=== PATIENT | male | born 1955 | race African-American/Black ===

== ENCOUNTER 2018-03-07 13:45 | Inpatient (IN) | payer OTHER ==
[2018-03-07 14:10] VITALS: BMI 31.8
--- NOTE | 2018-03-07 14:53 | HP ---
CIWA Score Nausea/Vomitin Muscle Tremors: 4-Moderate,w/Arms Extend Anxiety: 4-Mod. Anxious/Guarded Agitation: 0-Normal Activity Paroxysmal Sweats: 1-Minimal Palms Moist Orientation: 0-Oriented Tacttile Disturbances: 0-None Auditory Disturbances: 1-Very Mild Visual Disturbances: 0-None Headache: 2-Mild CIWA-Ar Total Score: 14 - Admission Criteria [facility] Guidelines: Admission for Medically Managed Detox: Requires at least one of the followin. CIWA greater than 12 2. Seizures within the past 24 hours 3. Delirium tremens within the past 24 hours 4. Hallucinations within the past 24 hours 5. Acute intervention needed for co occurring medical disorder 6. Acute intervention needed for co occurring psychiatric disorder 7. Severe withdrawal that cannot be handled at a lower level of care (continued vomiting, continued diarrhea, abnormal vital signs) requiring intravenous medication and/or fluids 8. Patient presents the following: CIWA greater than 12 Admission Criteria Met: Admission criteria met Admission ROS S - HPI Chief Complaint: Things are out of control. I need help. Allergies/Adverse Reactions: Allergies Allergy/AdvReac Type Severity Reaction Status Date / Time No Known Allergies Allergy Verified 03/07/18 14:35 History of Present Illness: 62 yo gentleman here for detox from alcohol. First time here for detox but was in detox elsewhere - states last time in detox five years ago and relapsed about two years ago. Denies seizures but has black outs and gets very shaky if he doesn't drink alcohol. Exam Limitations: Clinical Condition - Ebola screening Have you traveled outside of the country in the last 21 days: No (N) Have you had contact with anyone from an Ebola affected area: No Have you been sick,other than usual withdrawal symptoms: No Do you have a fever: No - Review of Systems Constitutional: Loss of Appetite, Night Sweats, Changes in sleep, Weakness EENT: reports: Blurred Vision, Hearing Loss Respiratory: reports: No Symptoms reported Cardiac: reports: No Symptoms Reported GI: reports: Nausea, Poor Appetite, Abdominal cramping : reports: Frequency Musculoskeletal: reports: Joint Pain (knee arthritis), Joint Stiffness Integumentary: reports: Dryness Neuro: reports: Headache, Tremors Endocrine: reports: No Symptoms Reported Hematology: reports: No Symptoms Reported Psychiatric: reports: Judgement Intact, Mood/Affect Appropiate, Orientated x3, Anxious Other Systems: Reviewed and Negative Patient History - Patient Medical History Hx Anemia: No Hx Asthma: No Hx Chronic Obstructive Pulmonary Disease (COPD): No Hx Cancer: No Hx Cardiac Disorders: No Hx Congestive Heart Failure: No Hx Hypertension: Yes (on meds) Hx Hypercholesterolemia: No Hx Pacemaker: No HX Cerebrovascular Accident: No Hx Seizures: No Hx Diabetes: No Hx Gastrointestinal Disorders: No Hx Liver Disease: No Hx Genitourinary Disorders: No Hx Sexually Transmitted Disorders: No Hx Renal Disease (ESRD): No Hx Thyroid Disease: No Hx Human Immunodeficiency Virus (HIV): No Hx Hepatitis C: No Hx Depression: No Hx Suicide Attempt: No Hx Bipolar Disorder: No Hx Schizophrenia: No Other Medical History: knee arthritis - Patient Surgical History Past Surgical History: No - PPD History Previous Implant?: Yes Documented Results: Negative w/o proof Implanted On Prior [facility] Admission?: No PPD to be Administered?: Yes - Reproductive History Patient is a Female of Child Bearing Age (11 -55 yrs old): No (male) - Smoking Cessation Smoking history: Current every day smoker Have you smoked in the past 12 months: Yes Aproximately how many cigarettes per day: 20 Initiated information on smoking cessation: Yes 'Breaking Loose' booklet given: 03/07/18 (give on floor) - Substance & Tx. History Hx Alcohol Use: Yes Hx Substance Use: Yes Substance Use Type: Alcohol, Cocaine Hx Substance Use Treatment: Yes (detox, rehab) - Substances Abused Alcohol Route: Oral Frequency: Daily Amount used: 1 [place] Age of first use: 26 Date of Last Use: 03/06/18 Crack Route: Smoking Frequency: Daily Amount used: $30 Age of first use: 27 Date of Last Use: 03/07/18 Family Disease History - Family Disease History Family Disease History: [place]: Father (, etoh), Other: Father, Mother ( , asthma) Admission Physical Exam [facility] - Vital Signs Vital Signs: Vital Signs - 24 hr 03/07/18 14:05 Temperature 98.1 F Pulse Rate 72 Respiratory 20 Rate Blood Pressure 129/79 - Physical General Appearance: Yes: Nourished, Appropriately Dressed, Moderate Distress, Obese, Tremorous, Anxious HEENTM: Yes: EOMI, Normocephalic, Normal Voice, Pharynx Normal, Other (hearing is decreased) Respiratory: Yes: Normal Breath Sounds, No Respiratory Distress Neck: Yes: No masses,lesions,Nodules, Supple Breast: Yes: Breast Exam Deferred Cardiology: Yes: Regular Rhythm, Regular Rate Abdominal: Yes: Soft, Protuberent Genitourinary: Yes: Frequency Back: Yes: Normal Inspection Musculoskeletal: Yes: full range of Motion, Gait Steady, Joint Stiffness Extremities: Yes: Normal Inspection Neurological: Yes: Fully Oriented, Alert, Motor Strength 5/5, Normal Mood/Affect , Normal Response Integumentary: Yes: Normal Color, Dry, Warm Lymphatic: Yes: Within Normal Limits - Diagnostic (1) Alcohol dependence with uncomplicated withdrawal Current Visit: Yes Status: Chronic (2) Cocaine dependence Current Visit: Yes Status: Acute Qualifiers: Substance use status: uncomplicated Qualified Code(s): F14.20 - Cocaine dependence, uncomplicated (3) HTN (hypertension) Current Visit: Yes Status: Acute Qualifiers: Hypertension type: essential hypertension Qualified Code(s): I10 - Essential (primary) hypertension (4) Nicotine dependence Current Visit: Yes Status: Chronic Qualifiers: Nicotine product type: cigarettes Substance use status: uncomplicated Qualified Code(s): F17.210 - Nicotine dependence, cigarettes, uncomplicated (5) Obesity (BMI 30.0-34.9) Current Visit: Yes Status: Chronic (6) Osteoarthritis of knee Current Visit: Yes Status: Chronic Qualifiers: Osteoarthritis type: primary Laterality: bilateral Qualified Code(s): M17.0 - Bilateral primary osteoarthritis of knee Cleared for Admission [facility] - Detox or Rehab [facility] Level of Care: Medically Managed Detox Regimen/Protocol: Librium [facility] Breath Alcohol Content Breath Alcohol Content: 0 Urine Drug Screen - Results Drug Screen Negative: No Urine Drug Screen Results: KIKE-Cocaine
[2018-03-07] MEDS ORDERED: MAGNESIUM CITRATE 300 ML BOTTLE PO PRN (14:55)
[2018-03-07] MEDS ORDERED: MENTHOL/PHENOL 1 EACH UD MM PRN (14:55)
[2018-03-07] MEDS ORDERED: MAGNESIUM HYDROX 2400MG/30ML ORAL SUSPENSION 30 ML CUP PO PRN (14:55)
[2018-03-07] MEDS ORDERED: chlordiazePOXIDE HCL 25 MG CAPSULE PO PRN (14:55)
[2018-03-07] MEDS ORDERED: guaiFENesin/D-METHORPHAN HB 10 ML UNIT-DOSE CUPS PO PRN (14:55)
[2018-03-07] MEDS ORDERED: MAG HYDROX/AL HYDROX/SIMETH 30 ML UNIT-DOSE CUP PO PRN (14:55)
[2018-03-07] MEDS ORDERED: IBUPROFEN 400 MG TABLET (FP) PO PRN (14:55)
[2018-03-07] MEDS ORDERED: LOPERAMIDE HCL 2 MG CAPSULE PO PRN (14:55)
[2018-03-07] MEDS ORDERED: ACETAMINOPHEN 325 MG TABLET (FP) PO PRN (14:55)
[2018-03-07] MEDS ORDERED: P-EPHED 60MG/TRIPROLIDI 2.5MG TABLET PO PRN (14:55)
[2018-03-07] MEDS: chlordiazePOXIDE HCL 25 MG CAPSULE PO SCH ×2 (17:40→22:15)
[2018-03-07] MEDS ORDERED: MELATONIN 5 MG TABLETS PO PRN (22:00)
[2018-03-07] MEDS: THIAMINE HCL 100 MG TABLET (FP) PO SCH (22:15)
[2018-03-07] MEDS: METHYL SALICYLATE/MENTHOL OINT 30 GM TUBE TP SCH (22:16)
[2018-03-08] MEDS: chlordiazePOXIDE HCL 25 MG CAPSULE PO SCH ×3 (05:17→17:22)
[2018-03-08] MEDS: METHYL SALICYLATE/MENTHOL OINT 30 GM TUBE TP SCH ×2 (10:17→23:19)
[2018-03-08] MEDS: PRENATAL VITAMINS W/ FOLIC ACID TABLET (FP) PO SCH (10:18)
[2018-03-08] MEDS: HYDROCHLOROTHIAZIDE 25 MG TABLET (FP) PO SCH (10:19)
[2018-03-08] MEDS: amLODIPine BESYLATE 10 MG TABLET (FP) PO SCH (10:19)
--- NOTE | 2018-03-08 11:00 | EKG ---
Test Reason : Blood Pressure : / mmHG Vent. Rate : 079 BPM Atrial Rate : 079 BPM P-R Int : 172 ms QRS Dur : 088 ms QT Int : 386 ms P-R-T Axes : 072 013 054 degrees QTc Int : 442 ms NORMAL SINUS RHYTHM POSSIBLE LEFT ATRIAL ENLARGEMENT NONSPECIFIC T WAVE ABNORMALITY ABNORMAL ECG NO PREVIOUS ECGS AVAILABLE Confirmed by RADHA ARDON MD ([id number]) on 03/08/2018 11:00:01 AM Referred By: Confirmed By:RADHA ARDON MD
[2018-03-08 11:15] LABS: ALBUMIN 3.3 g/dl (3.4-5.0); ALK PHOS 67 U/L (45-117); ANION GAP 9 MMOL/L (8-16); BILIRUBIN,TOTAL 0.4 mg/dL (0.2-1); BLOOD UREA NITROGEN 16 mg/dL (7-18); CALCIUM 8.6 mg/dL (8.5-10.1); CHLORIDE 110 mmol/L (98-107); CO2 24 mmol/L (21-32); CREATININE 0.9 mg/dL (0.55-1.3); GLUCOSE,RANDOM 108 mg/dL (74-106); POTASSIUM 3.5 mmol/L (3.5-5.1); SGOT/AST 9 U/L (15-37); SGPT/ALT 21 U/L (13-61); SODIUM 143 mmol/L (136-145); TOT PROT 6.5 g/dl (6.4-8.2)
[2018-03-08 11:19] LABS: HEMATOCRIT 38.3 % (35.4-49); HEMOGLOBIN 12.8 GM/dL (11.7-16.9); MCH 33.1 pg (25.7-33.7); MCHC 33.4 g/dl (32.0-35.9); MEAN PLT VOLUME 8.7 fl (7.5-11.1); PLATELET COUNT 187 K/MM3 (134-434); RBC 3.87 M/mm3 (4.00-5.60); RDW 13.2 % (11.9-15.9); WHITE BLOOD COUNT 6.2 K/mm3 (4.0-10.0)
[2018-03-08 11:28] LABS: URINE APPEARANCE TURBID; URINE BILIRUBIN NEGATIVE (<2.0 mg/dL); URINE COLOR AMBER; URINE GLUCOSE (UA) NEGATIVE (NEGATIVE); URINE KETONE NEGATIVE (NEGATIVE); URINE LEUK ESTERASE NEGATIVE (NEGATIVE); URINE NITRITE NEGATIVE (NEGATIVE); URINE PROTEIN NEGATIVE (NEGATIVE); URINE UROBILINOGEN NEGATIVE mg/dL (0.2-1.0)
[2018-03-08 11:33] LABS: EPI CELLS RARE /HPF (FEW); URINE MUCUS RARE
[2018-03-08 11:46] LABS: SICKLE CELL SCREEN NEGATIVE (NEGATIVE)
--- NOTE | 2018-03-08 14:09 | PN ---
S CIWA - CIWA Score Nausea/Vomitin-Mild Nausea/No Vomiting Muscle Tremors: 3 Anxiety: 2 Agitation: 3 Paroxysmal Sweats: 1-Minimal Palms Moist Orientation: 0-Oriented Tacttile Disturbances: 0-None Auditory Disturbances: 0-None Visual Disturbances: 0-None Headache: 2-Mild CIWA-Ar Total Score: 12 BHS Progress Note (SOAP) Subjective: tremor sweating limited food and fluid toleration Objective: 03/08/18 14:11 Vital Signs Temperature 95.5 F L 03/08/18 13:20 Pulse Rate 68 03/08/18 13:20 Respiratory Rate 18 03/08/18 13:20 Blood Pressure 138/79 03/08/18 13:20 O2 Sat by Pulse Oximetry (%) Laboratory Last Values WBC 6.2 K/mm3 (4.0-10.0) 03/08/18 07:20 RBC 3.87 M/mm3 (4.00-5.60) L 03/08/18 07:20 Hgb 12.8 GM/dL (11.7-16.9) 03/08/18 07:20 Hct 38.3 % (35.4-49) 03/08/18 07:20 MCV 99.0 fl (80-96) H 03/08/18 07:20 MCH 33.1 pg (25.7-33.7) 03/08/18 07:20 MCHC 33.4 g/dl (32.0-35.9) 03/08/18 07:20 RDW 13.2 % (11.9-15.9) 03/08/18 07:20 Plt Count 187 K/MM3 (134-434) 03/08/18 07:20 MPV 8.7 fl (7.5-11.1) 03/08/18 07:20 Sickle Cell Screen Negative (NEGATIVE) 03/08/18 07:20 Sodium 143 mmol/L (136-145) 03/08/18 07:20 Potassium 3.5 mmol/L (3.5-5.1) 03/08/18 07:20 Chloride 110 mmol/L (98-107) H 03/08/18 07:20 Carbon Dioxide 24 mmol/L (21-32) 03/08/18 07:20 Anion Gap 9 MMOL/L (8-16) 03/08/18 07:20 BUN 16 mg/dL (7-18) 03/08/18 07:20 Creatinine 0.9 mg/dL (0.55-1.3) 03/08/18 07:20 Creat Clearance w eGFR > 60 (>60) 03/08/18 07:20 Random Glucose 108 mg/dL (74-106) H 03/08/18 07:20 Calcium 8.6 mg/dL (8.5-10.1) 03/08/18 07:20 Total Bilirubin 0.4 mg/dL (0.2-1) 03/08/18 07:20 AST 9 U/L (15-37) L 03/08/18 07:20 ALT 21 U/L (13-61) 03/08/18 07:20 Alkaline Phosphatase 67 U/L (45-117) 03/08/18 07:20 Total Protein 6.5 g/dl (6.4-8.2) 03/08/18 07:20 Albumin 3.3 g/dl (3.4-5.0) L 03/08/18 07:20 Urine Color Danya 03/08/18 08:20 Urine Appearance Turbid 03/08/18 08:20 Urine pH 5.0 (5.0-8.0) 03/08/18 08:20 Ur Specific [place] 1.018 (1.010-1.035) 03/08/18 08:20 Urine Protein Negative (NEGATIVE) 03/08/18 08:20 Urine Glucose (UA) Negative (NEGATIVE) 03/08/18 08:20 Urine Ketones Negative (NEGATIVE) 03/08/18 08:20 Urine Blood 1+ (NEGATIVE) H 03/08/18 08:20 Urine Nitrite Negative (NEGATIVE) 03/08/18 08:20 Urine Bilirubin Negative (<2.0 mg/dL) 03/08/18 08:20 Urine Urobilinogen Negative mg/dL (0.2-1.0) 03/08/18 08:20 Ur Leukocyte Esterase Negative (NEGATIVE) 03/08/18 08:20 Urine WBC (Auto) <1 /hpf (3-5) 03/08/18 08:20 Urine RBC (Auto) 2 /hpf (0-3) 03/08/18 08:20 Ur Epithelial Cells Rare /HPF (FEW) 03/08/18 08:20 Urine Mucus Rare 03/08/18 08:20 RPR Titer Nonreactive (NONREACTIVE) 03/08/18 07:20 lab noted Assessment: 03/08/18 14:11 withdrawal sx Plan: continue detox
[2018-03-08] MEDS: THIAMINE HCL 100 MG TABLET (FP) PO SCH (23:19)
[2018-03-09] MEDS: chlordiazePOXIDE HCL 25 MG CAPSULE PO SCH ×3 (00:25→10:28)
[2018-03-09] MEDS: PRENATAL VITAMINS W/ FOLIC ACID TABLET (FP) PO SCH (10:28)
[2018-03-09] MEDS: amLODIPine BESYLATE 10 MG TABLET (FP) PO SCH (10:28)
[2018-03-09] MEDS: HYDROCHLOROTHIAZIDE 25 MG TABLET (FP) PO SCH (10:30)
[2018-03-09] MEDS: METHYL SALICYLATE/MENTHOL OINT 30 GM TUBE TP SCH ×2 (10:31→22:20)
--- NOTE | 2018-03-09 11:29 | PN ---
S CIWA - CIWA Score Nausea/Vomitin-No Nausea/No Vomiting Muscle Tremors: 2 Anxiety: 2 Agitation: 2 Paroxysmal Sweats: 1-Minimal Palms Moist Orientation: 0-Oriented Tacttile Disturbances: 0-None Auditory Disturbances: 0-None Visual Disturbances: 0-None Headache: 2-Mild CIWA-Ar Total Score: 9 BHS Progress Note (SOAP) Subjective: tremor sweating otherwise doing ok social with peers in day room Objective: 03/09/18 11:30 Vital Signs Temperature 98.4 F 03/09/18 09:14 Pulse Rate 61 03/09/18 09:14 Respiratory Rate 18 03/09/18 09:14 Blood Pressure 121/74 03/09/18 09:14 O2 Sat by Pulse Oximetry (%) Laboratory Last Values WBC 6.2 K/mm3 (4.0-10.0) 03/08/18 07:20 RBC 3.87 M/mm3 (4.00-5.60) L 03/08/18 07:20 Hgb 12.8 GM/dL (11.7-16.9) 03/08/18 07:20 Hct 38.3 % (35.4-49) 03/08/18 07:20 MCV 99.0 fl (80-96) H 03/08/18 07:20 MCH 33.1 pg (25.7-33.7) 03/08/18 07:20 MCHC 33.4 g/dl (32.0-35.9) 03/08/18 07:20 RDW 13.2 % (11.9-15.9) 03/08/18 07:20 Plt Count 187 K/MM3 (134-434) 03/08/18 07:20 MPV 8.7 fl (7.5-11.1) 03/08/18 07:20 Sickle Cell Screen Negative (NEGATIVE) 03/08/18 07:20 Sodium 143 mmol/L (136-145) 03/08/18 07:20 Potassium 3.5 mmol/L (3.5-5.1) 03/08/18 07:20 Chloride 110 mmol/L (98-107) H 03/08/18 07:20 Carbon Dioxide 24 mmol/L (21-32) 03/08/18 07:20 Anion Gap 9 MMOL/L (8-16) 03/08/18 07:20 BUN 16 mg/dL (7-18) 03/08/18 07:20 Creatinine 0.9 mg/dL (0.55-1.3) 03/08/18 07:20 Creat Clearance w eGFR > 60 (>60) 03/08/18 07:20 Random Glucose 108 mg/dL (74-106) H 03/08/18 07:20 Calcium 8.6 mg/dL (8.5-10.1) 03/08/18 07:20 Total Bilirubin 0.4 mg/dL (0.2-1) 03/08/18 07:20 AST 9 U/L (15-37) L 03/08/18 07:20 ALT 21 U/L (13-61) 03/08/18 07:20 Alkaline Phosphatase 67 U/L (45-117) 03/08/18 07:20 Total Protein 6.5 g/dl (6.4-8.2) 03/08/18 07:20 Albumin 3.3 g/dl (3.4-5.0) L 03/08/18 07:20 Urine Color Danya 03/08/18 08:20 Urine Appearance Turbid 03/08/18 08:20 Urine pH 5.0 (5.0-8.0) 03/08/18 08:20 Ur Specific [place] 1.018 (1.010-1.035) 03/08/18 08:20 Urine Protein Negative (NEGATIVE) 03/08/18 08:20 Urine Glucose (UA) Negative (NEGATIVE) 03/08/18 08:20 Urine Ketones Negative (NEGATIVE) 03/08/18 08:20 Urine Blood 1+ (NEGATIVE) H 03/08/18 08:20 Urine Nitrite Negative (NEGATIVE) 03/08/18 08:20 Urine Bilirubin Negative (<2.0 mg/dL) 03/08/18 08:20 Urine Urobilinogen Negative mg/dL (0.2-1.0) 03/08/18 08:20 Ur Leukocyte Esterase Negative (NEGATIVE) 03/08/18 08:20 Urine WBC (Auto) <1 /hpf (3-5) 03/08/18 08:20 Urine RBC (Auto) 2 /hpf (0-3) 03/08/18 08:20 Ur Epithelial Cells Rare /HPF (FEW) 03/08/18 08:20 Urine Mucus Rare 03/08/18 08:20 RPR Titer Nonreactive (NONREACTIVE) 03/08/18 07:20 lab noted Assessment: 03/09/18 11:30 withdrawal sx Plan: continue detox
[2018-03-09] MEDS: chlordiazePOXIDE 5 MG CAPSULE PO SCH ×2 (17:37→22:20)
[2018-03-09] MEDS: THIAMINE HCL 100 MG TABLET (FP) PO SCH (22:20)
[2018-03-10] MEDS: chlordiazePOXIDE 5 MG CAPSULE PO SCH ×2 (05:46→10:27)
[2018-03-10] MEDS: METHYL SALICYLATE/MENTHOL OINT 30 GM TUBE TP SCH ×2 (09:45→22:27)
[2018-03-10] MEDS: amLODIPine BESYLATE 10 MG TABLET (FP) PO SCH (09:45)
[2018-03-10] MEDS: PRENATAL VITAMINS W/ FOLIC ACID TABLET (FP) PO SCH (09:45)
[2018-03-10] MEDS: HYDROCHLOROTHIAZIDE 25 MG TABLET (FP) PO SCH (09:45)
--- NOTE | 2018-03-10 13:02 | PN ---
BHS Progress Note (SOAP) Subjective: feeling better mild tremor less sweating Objective: 03/10/18 13:01 Vital Signs Temperature 98 F 03/10/18 09:06 Pulse Rate 73 03/10/18 09:06 Respiratory Rate 20 03/10/18 09:06 Blood Pressure 125/71 03/10/18 09:06 O2 Sat by Pulse Oximetry (%) Laboratory Last Values WBC 6.2 K/mm3 (4.0-10.0) 03/08/18 07:20 RBC 3.87 M/mm3 (4.00-5.60) L 03/08/18 07:20 Hgb 12.8 GM/dL (11.7-16.9) 03/08/18 07:20 Hct 38.3 % (35.4-49) 03/08/18 07:20 MCV 99.0 fl (80-96) H 03/08/18 07:20 MCH 33.1 pg (25.7-33.7) 03/08/18 07:20 MCHC 33.4 g/dl (32.0-35.9) 03/08/18 07:20 RDW 13.2 % (11.9-15.9) 03/08/18 07:20 Plt Count 187 K/MM3 (134-434) 03/08/18 07:20 MPV 8.7 fl (7.5-11.1) 03/08/18 07:20 Sickle Cell Screen Negative (NEGATIVE) 03/08/18 07:20 Sodium 143 mmol/L (136-145) 03/08/18 07:20 Potassium 3.5 mmol/L (3.5-5.1) 03/08/18 07:20 Chloride 110 mmol/L (98-107) H 03/08/18 07:20 Carbon Dioxide 24 mmol/L (21-32) 03/08/18 07:20 Anion Gap 9 MMOL/L (8-16) 03/08/18 07:20 BUN 16 mg/dL (7-18) 03/08/18 07:20 Creatinine 0.9 mg/dL (0.55-1.3) 03/08/18 07:20 Creat Clearance w eGFR > 60 (>60) 03/08/18 07:20 Random Glucose 108 mg/dL (74-106) H 03/08/18 07:20 Calcium 8.6 mg/dL (8.5-10.1) 03/08/18 07:20 Total Bilirubin 0.4 mg/dL (0.2-1) 03/08/18 07:20 AST 9 U/L (15-37) L 03/08/18 07:20 ALT 21 U/L (13-61) 03/08/18 07:20 Alkaline Phosphatase 67 U/L (45-117) 03/08/18 07:20 Total Protein 6.5 g/dl (6.4-8.2) 03/08/18 07:20 Albumin 3.3 g/dl (3.4-5.0) L 03/08/18 07:20 Urine Color Danya 03/08/18 08:20 Urine Appearance Turbid 03/08/18 08:20 Urine pH 5.0 (5.0-8.0) 03/08/18 08:20 Ur Specific [place] 1.018 (1.010-1.035) 03/08/18 08:20 Urine Protein Negative (NEGATIVE) 03/08/18 08:20 Urine Glucose (UA) Negative (NEGATIVE) 03/08/18 08:20 Urine Ketones Negative (NEGATIVE) 03/08/18 08:20 Urine Blood 1+ (NEGATIVE) H 03/08/18 08:20 Urine Nitrite Negative (NEGATIVE) 03/08/18 08:20 Urine Bilirubin Negative (<2.0 mg/dL) 03/08/18 08:20 Urine Urobilinogen Negative mg/dL (0.2-1.0) 03/08/18 08:20 Ur Leukocyte Esterase Negative (NEGATIVE) 03/08/18 08:20 Urine WBC (Auto) <1 /hpf (3-5) 03/08/18 08:20 Urine RBC (Auto) 2 /hpf (0-3) 03/08/18 08:20 Ur Epithelial Cells Rare /HPF (FEW) 03/08/18 08:20 Urine Mucus Rare 03/08/18 08:20 RPR Titer Nonreactive (NONREACTIVE) 03/08/18 07:20 lab noted Assessment: 03/10/18 13:01 mild withdrawal sx Plan: continue detox
[2018-03-10] MEDS: chlordiazePOXIDE HCL 10 MG CAPSULE PO SCH ×2 (17:13→22:26)
[2018-03-10] MEDS: THIAMINE HCL 100 MG TABLET (FP) PO SCH (22:26)
[2018-03-11] MEDS: chlordiazePOXIDE HCL 10 MG CAPSULE PO SCH (05:38)
[2018-03-11 06:07] VITALS: BP 111/72; PULSE 60; TEMP 97.4
--- NOTE | 2018-03-11 11:34 | DS ---
[facility] Detox Discharge Summary Admission Date: 03/07/18 Discharge Date: 03/11/18 - History Present History: Alcohol Dependence Additional Comments: 62 years old male admitted on 03/07/18 for alcohol withdrawal stabilization completed detox regimen aftercare [facility] Pertinent Past History: patient left the detox unit prior to 0800 the lyric writer has not assessed nor evaluated the patient - Physical Exam Results Vital Signs: Vital Signs Temperature 97.4 F L 03/11/18 06:06 Pulse Rate 60 03/11/18 06:06 Respiratory Rate 18 03/11/18 06:06 Blood Pressure 111/72 03/11/18 06:06 O2 Sat by Pulse Oximetry (%) Pertinent Admission Physical Exam Findings: alcohol withdrawal sx Laboratory Last Values WBC 6.2 K/mm3 (4.0-10.0) 03/08/18 07:20 RBC 3.87 M/mm3 (4.00-5.60) L 03/08/18 07:20 Hgb 12.8 GM/dL (11.7-16.9) 03/08/18 07:20 Hct 38.3 % (35.4-49) 03/08/18 07:20 MCV 99.0 fl (80-96) H 03/08/18 07:20 MCH 33.1 pg (25.7-33.7) 03/08/18 07:20 MCHC 33.4 g/dl (32.0-35.9) 03/08/18 07:20 RDW 13.2 % (11.9-15.9) 03/08/18 07:20 Plt Count 187 K/MM3 (134-434) 03/08/18 07:20 MPV 8.7 fl (7.5-11.1) 03/08/18 07:20 Sickle Cell Screen Negative (NEGATIVE) 03/08/18 07:20 Sodium 143 mmol/L (136-145) 03/08/18 07:20 Potassium 3.5 mmol/L (3.5-5.1) 03/08/18 07:20 Chloride 110 mmol/L (98-107) H 03/08/18 07:20 Carbon Dioxide 24 mmol/L (21-32) 03/08/18 07:20 Anion Gap 9 MMOL/L (8-16) 03/08/18 07:20 BUN 16 mg/dL (7-18) 03/08/18 07:20 Creatinine 0.9 mg/dL (0.55-1.3) 03/08/18 07:20 Creat Clearance w eGFR > 60 (>60) 03/08/18 07:20 Random Glucose 108 mg/dL (74-106) H 03/08/18 07:20 Calcium 8.6 mg/dL (8.5-10.1) 03/08/18 07:20 Total Bilirubin 0.4 mg/dL (0.2-1) 03/08/18 07:20 AST 9 U/L (15-37) L 03/08/18 07:20 ALT 21 U/L (13-61) 03/08/18 07:20 Alkaline Phosphatase 67 U/L (45-117) 03/08/18 07:20 Total Protein 6.5 g/dl (6.4-8.2) 03/08/18 07:20 Albumin 3.3 g/dl (3.4-5.0) L 03/08/18 07:20 Urine Color Danya 03/08/18 08:20 Urine Appearance Turbid 03/08/18 08:20 Urine pH 5.0 (5.0-8.0) 03/08/18 08:20 Ur Specific [place] 1.018 (1.010-1.035) 03/08/18 08:20 Urine Protein Negative (NEGATIVE) 03/08/18 08:20 Urine Glucose (UA) Negative (NEGATIVE) 03/08/18 08:20 Urine Ketones Negative (NEGATIVE) 03/08/18 08:20 Urine Blood 1+ (NEGATIVE) H 03/08/18 08:20 Urine Nitrite Negative (NEGATIVE) 03/08/18 08:20 Urine Bilirubin Negative (<2.0 mg/dL) 03/08/18 08:20 Urine Urobilinogen Negative mg/dL (0.2-1.0) 03/08/18 08:20 Ur Leukocyte Esterase Negative (NEGATIVE) 03/08/18 08:20 Urine WBC (Auto) <1 /hpf (3-5) 03/08/18 08:20 Urine RBC (Auto) 2 /hpf (0-3) 03/08/18 08:20 Ur Epithelial Cells Rare /HPF (FEW) 03/08/18 08:20 Urine Mucus Rare 03/08/18 08:20 RPR Titer Nonreactive (NONREACTIVE) 03/08/18 07:20 lab noted - Treatment Hospital Course: Detox Protocol Followed, Detoxed Safely, Responded well, Discharged Condition Good, Rehab Referral Accepted Patient has Accepted a Rehab Referral to: [facility] - Medication Discharge Medications: Ambulatory Orders Amlodipine Besylate 10 mg PO DAILY #14 tablet 03/10/18 Hydrochlorothiazide 25 mg PO DAILY #14 tablet 03/10/18 - Diagnosis (1) HTN (hypertension) Status: Chronic Qualifiers: Hypertension type: essential hypertension Qualified Code(s): I10 - Essential (primary) hypertension (2) Alcohol dependence with uncomplicated withdrawal Status: Acute (3) Nicotine dependence Status: Acute Qualifiers: Nicotine product type: cigarettes Substance use status: in withdrawal Qualified Code(s): F17.213 - Nicotine dependence, cigarettes, with withdrawal - AMA Did Patient Leave Against Medical Advice: No
== END 2018-03-11 08:10 | disposition home or self-care (01) | DRG 774 ==
LOC: YASAS 13:45 → Y3N 14:58
PROVIDERS: ADMIT Neuromusculoskeletal Medicine & OMM; ATTEND Neuromusculoskeletal Medicine & OMM
PROC: HZ2ZZZZ Detoxification Services for Substance Abuse Treatment (ICD-10-PCS; principal; 2018-03-07)
DX: F10.230 Alcohol dependence with withdrawal, uncomplicated (principal); F14.20 Cocaine dependence, uncomplicated; F17.213 Nicotine dependence, cigarettes, with withdrawal; I10 Essential (primary) hypertension; M17.0 Bilateral primary osteoarthritis of knee; E66.9 Obesity, unspecified; Z68.31 Body mass index [BMI] 31.0-31.9, adult
CPT/HCPCS: 36415; 80053; 81003; 81015; 85027; 85660; 86593; 93005; 93010

== ENCOUNTER 2018-09-21 15:15 | Inpatient (IN) | payer OTHER ==
[2018-09-21 19:10] VITALS: BMI 30.8
--- NOTE | 2018-09-21 21:20 | HP ---
CIWA Score - Admission Criteria [facility] Guidelines: Admission for Medically Managed Detox: Requires at least one of the followin. CIWA greater than 12 2. Seizures within the past 24 hours 3. Delirium tremens within the past 24 hours 4. Hallucinations within the past 24 hours 5. Acute intervention needed for co occurring medical disorder 6. Acute intervention needed for co occurring psychiatric disorder 7. Severe withdrawal that cannot be handled at a lower level of care (continued vomiting, continued diarrhea, abnormal vital signs) requiring intravenous medication and/or fluids 8. Admission ROS S - HPI Chief Complaint: Seeking admission to Rehab Allergies/Adverse Reactions: Allergies Allergy/AdvReac Type Severity Reaction Status Date / Time No Known Allergies Allergy Verified 09/21/18 19:06 History of Present Illness: 63 years old male with a long history of alcohol dependence is seeking admission to detox. Patient reports that his last detox was in February 2018. He has medical history of hypertension, osteoarthritis of the knees and left ear hearing loss. He denies suicide attempt and suicidal ideation at this time. Exam Limitations: No Limitations - Ebola screening Have you traveled outside of the country in the last 21 days: No Have you had contact with anyone from an Ebola affected area: No Do you have a fever: No - Review of Systems Constitutional: No Symptoms Reported EENT: reports: No Symptoms Reported Respiratory: reports: No Symptoms reported Cardiac: reports: No Symptoms Reported GI: reports: No Symptoms Reported : reports: No Symptoms Reported Musculoskeletal: reports: No Symptoms Reported Integumentary: reports: No Symptoms Reported Neuro: reports: No Symptoms reported Endocrine: reports: No Symptoms Reported Hematology: reports: No Symptoms Reported Psychiatric: reports: No Sypmtoms Reported, Mood/Affect Appropiate, Orientated x3 Other Systems: Reviewed and Negative Patient History - Patient Medical History Hx Anemia: No Hx Asthma: No Hx Chronic Obstructive Pulmonary Disease (COPD): No Hx Cancer: No Hx Cardiac Disorders: No Hx Congestive Heart Failure: No Hx Hypertension: Yes Hx Hypercholesterolemia: No Hx Pacemaker: No HX Cerebrovascular Accident: No Hx Seizures: No Hx Diabetes: No Hx Gastrointestinal Disorders: No Hx Liver Disease: No Hx Genitourinary Disorders: No Hx Sexually Transmitted Disorders: No Hx Renal Disease (ESRD): No Hx Thyroid Disease: No Hx Human Immunodeficiency Virus (HIV): No (Negative 2013) Hx Hepatitis C: No Hx Depression: No Hx Suicide Attempt: No Hx Bipolar Disorder: No Hx Schizophrenia: No - Patient Surgical History Past Surgical History: No - PPD History Previous Implant?: Yes Documented Results: Negative w/proof Implanted On Prior [facility] Admission?: Yes Date: 03/09/18 PPD to be Administered?: Yes - Reproductive History Patient is a Female of Child Bearing Age (11 -55 yrs old): No (male) - Smoking Cessation Smoking history: Current every day smoker Have you smoked in the past 12 months: Yes Aproximately how many cigarettes per day: 20 Hx Chewing Tobacco Use: No Initiated information on smoking cessation: Yes 'Breaking Loose' booklet given: 09/21/18 - Substance & Tx. History Hx Alcohol Use: Yes Hx Substance Use: Yes Substance Use Type: Alcohol, Cocaine Hx Substance Use Treatment: Yes ([facility]) - Substances abused Alcohol Substance route: Oral Frequency: Daily Amount used: 1pint of Vodka/day Age of first use: 26 Date of last use: 09/20/18 Crack Substance route: Smoking Frequency: Daily Amount used: $40 Age of first use: 27 Date of last use: 09/20/18 Family Disease History - Family Disease History Family Disease History: CA: Father (, etoh), Other: Father, Mother ( , asthma) Admission Physical Exam S - Vital Signs Vital Signs: Vital Signs - 24 hr 09/21/18 19:07 Temperature 97.0 F L Pulse Rate 57 L Respiratory 20 Rate Blood Pressure 150/91 - Physical General Appearance: Yes: No Apparent Distress, Appropriately Dressed HEENTM: Yes: EOMI, Normal ENT Inspection, Normal Voice, JUNIOR Respiratory: Yes: Lungs Clear, Normal Breath Sounds, No Respiratory Distress Neck: Yes: No masses,lesions,Nodules Breast: Yes: Breast Exam Deferred Cardiology: Yes: Regular Rhythm, Regular Rate Abdominal: Yes: Within Normal Limits Genitourinary: Yes: Within Normal Limits Back: Yes: Within Normal Limits Musculoskeletal: Yes: Within Normal Limits Extremities: Yes: Within Normal Limits Neurological: Yes: Alert, Normal Mood/Affect Integumentary: Yes: Warm Lymphatic: Yes: Within Normal Limits - Diagnostic (1) Alcohol dependence with uncomplicated withdrawal Current Visit: No Status: Acute (2) Cocaine dependence Current Visit: No Status: Acute Qualifiers: Substance use status: uncomplicated Qualified Code(s): F14.20 - Cocaine dependence, uncomplicated (3) Nicotine dependence Current Visit: No Status: Acute Qualifiers: Nicotine product type: cigarettes Substance use status: in withdrawal Qualified Code(s): F17.213 - Nicotine dependence, cigarettes, with withdrawal (4) HTN (hypertension) Current Visit: No Status: Chronic Qualifiers: Hypertension type: essential hypertension Qualified Code(s): I10 - Essential (primary) hypertension (5) Obesity (BMI 30.0-34.9) Current Visit: No Status: Chronic (6) Osteoarthritis of knee Current Visit: No Status: Chronic Qualifiers: Osteoarthritis type: primary Laterality: bilateral Qualified Code(s): M17.0 - Bilateral primary osteoarthritis of knee Cleared for Admission S - Detox or Rehab [facility] Level of Care: Observation Bed Claeared for Rehab Admission: Yes Breathalyzer - Breathalyzer Breathalyzer: 0 Inpatient Rehab Admission - Rehab Decision to Admit Inpatient rehab admission?: Yes - Initial Determination Are CD services needed?: No Free of communicable disease: Yes Not in need of hospitalization: Yes - Rehab Admission Criteria Previous failed treatment: Yes Poor recovery environment: Yes Comorbidities: Yes Lacks judgement: No Patient is meeting Inpatient Rehab admission criteria:: Yes
[2018-09-21] MEDS ORDERED: MENTHOL/PHENOL 1 EACH UD MM PRN (21:40)
[2018-09-21] MEDS ORDERED: NICOTINE POLACRILEX 2 MG GUM BC PRN (21:40)
[2018-09-21] MEDS ORDERED: guaiFENesin 200 MG/10 ML 10 ML UNIT-DOSE CUPS PO PRN (21:40)
[2018-09-21] MEDS ORDERED: P-EPHED 60MG/TRIPROLIDI 2.5MG TABLET PO PRN (21:40)
[2018-09-21] MEDS ORDERED: MAGNESIUM CITRATE 300 ML BOTTLE PO PRN (21:40)
[2018-09-21] MEDS ORDERED: IBUPROFEN 400 MG TABLET (FP) PO PRN (21:40)
[2018-09-21] MEDS ORDERED: MAG HYDROX/AL HYDROX/SIMETH 30 ML UNIT-DOSE CUP PO PRN (21:40)
[2018-09-21] MEDS ORDERED: ACETAMINOPHEN 325 MG TABLET (FP) PO PRN (21:40)
[2018-09-21] MEDS ORDERED: MAGNESIUM HYDROX 2400MG/30ML ORAL SUSPENSION 30 ML CUP PO PRN (21:40)
[2018-09-21] MEDS ORDERED: LOPERAMIDE HCL 2 MG CAPSULE PO PRN (21:40)
[2018-09-21] MEDS ORDERED: MELATONIN 5 MG TABLETS PO PRN (22:00)
[2018-09-21] MEDS: amLODIPine BESYLATE 10 MG TABLET (FP) PO SCH (23:27)
[2018-09-21] MEDS: HYDROCHLOROTHIAZIDE 25 MG TABLET (FP) PO SCH (23:27)
[2018-09-21] MEDS: THIAMINE HCL 100 MG TABLET (FP) PO SCH (23:27)
[2018-09-22] MEDS: PRENATAL VITAMINS W/ FOLIC ACID TABLET (FP) PO SCH (09:46)
[2018-09-22] MEDS: NICOTINE 14 MG/24 HOURS TOPICAL PATCH TD SCH (09:46)
[2018-09-22] MEDS: HYDROCHLOROTHIAZIDE 25 MG TABLET (FP) PO SCH (09:46)
[2018-09-22] MEDS: amLODIPine BESYLATE 10 MG TABLET (FP) PO SCH (09:46)
[2018-09-22 10:01] LABS: URINE APPEARANCE CLEAR; URINE BILIRUBIN NEGATIVE (NEGATIVE); URINE COLOR YELLOW; URINE GLUCOSE (UA) NEGATIVE (NEGATIVE); URINE KETONE NEGATIVE (NEGATIVE); URINE LEUK ESTERASE NEGATIVE (NEGATIVE); URINE NITRITE NEGATIVE (NEGATIVE); URINE PROTEIN NEGATIVE (NEGATIVE)
[2018-09-22 10:04] LABS: ALBUMIN 3.6 g/dl (3.4-5.0); BILIRUBIN,TOTAL 0.4 mg/dL (0.2-1); BLOOD UREA NITROGEN 20.2 mg/dL (7-18); CALCIUM 9.5 mg/dL (8.5-10.1); CREATININE 1.2 mg/dL (0.55-1.3); POTASSIUM 3.9 mmol/L (3.5-5.1); TOT PROT 7.1 g/dl (6.4-8.2)
[2018-09-22 13:42] LABS: HEMOGLOBIN 13.6 GM/dL (11.7-16.9); MCH 32.8 pg (25.7-33.7); MCHC 33.2 g/dl (32.0-35.9); MEAN CELL VOLUME 98.8 fl (80-96); MEAN PLT VOLUME 9.4 fl (7.5-11.1); PLATELET COUNT 234 K/MM3 (134-434); RBC 4.15 M/mm3 (4.00-5.60); RDW 13.6 % (11.9-15.9); WHITE BLOOD COUNT 7.3 K/mm3 (4.0-10.0)
[2018-09-22] MEDS: THIAMINE HCL 100 MG TABLET (FP) PO SCH (22:14)
[2018-09-23] MEDS: HYDROCHLOROTHIAZIDE 25 MG TABLET (FP) PO SCH (09:59)
[2018-09-23] MEDS: NICOTINE 14 MG/24 HOURS TOPICAL PATCH TD SCH (09:59)
[2018-09-23] MEDS: amLODIPine BESYLATE 10 MG TABLET (FP) PO SCH (09:59)
[2018-09-23] MEDS: PRENATAL VITAMINS W/ FOLIC ACID TABLET (FP) PO SCH (09:59)
--- NOTE | 2018-09-23 11:49 | EKG ---
Test Reason : Blood Pressure : / mmHG Vent. Rate : 054 BPM Atrial Rate : 054 BPM P-R Int : 180 ms QRS Dur : 082 ms QT Int : 454 ms P-R-T Axes : 057 003 048 degrees QTc Int : 430 ms POOR DATA QUALITY, INTERPRETATION MAY BE ADVERSELY AFFECTED SINUS BRADYCARDIA NONSPECIFIC ST AND T WAVE ABNORMALITY ABNORMAL ECG WHEN COMPARED WITH ECG OF 07-MAR-2018 15:35, ST ELEVATION NOW PRESENT IN ANTERIOR LEADS Confirmed by SONY GRANT, CATHERINE ([id number]) on 09/23/2018 11:48:37 AM Referred By: Debbie Voss Confirmed By:CATHERINE CARDOZA MD
[2018-09-23] MEDS: THIAMINE HCL 100 MG TABLET (FP) PO SCH (21:24)
[2018-09-24] MEDS: HYDROCHLOROTHIAZIDE 25 MG TABLET (FP) PO SCH (09:48)
[2018-09-24] MEDS: amLODIPine BESYLATE 10 MG TABLET (FP) PO SCH (09:48)
[2018-09-24] MEDS: PRENATAL VITAMINS W/ FOLIC ACID TABLET (FP) PO SCH (09:48)
[2018-09-24] MEDS: NICOTINE 14 MG/24 HOURS TOPICAL PATCH TD SCH (09:48)
[2018-09-24] MEDS: THIAMINE HCL 100 MG TABLET (FP) PO SCH (21:26)
[2018-09-25] MEDS: HYDROCHLOROTHIAZIDE 25 MG TABLET (FP) PO SCH (10:03)
[2018-09-25] MEDS: NICOTINE 14 MG/24 HOURS TOPICAL PATCH TD SCH (10:03)
[2018-09-25] MEDS: PRENATAL VITAMINS W/ FOLIC ACID TABLET (FP) PO SCH (10:03)
[2018-09-25] MEDS: amLODIPine BESYLATE 10 MG TABLET (FP) PO SCH (10:03)
[2018-09-25] MEDS: THIAMINE HCL 100 MG TABLET (FP) PO SCH (21:33)
[2018-09-26] MEDS: HYDROCHLOROTHIAZIDE 25 MG TABLET (FP) PO SCH (09:56)
[2018-09-26] MEDS: NICOTINE 14 MG/24 HOURS TOPICAL PATCH TD SCH (09:56)
[2018-09-26] MEDS: amLODIPine BESYLATE 10 MG TABLET (FP) PO SCH (09:57)
[2018-09-26] MEDS: PRENATAL VITAMINS W/ FOLIC ACID TABLET (FP) PO SCH (09:57)
[2018-09-26] MEDS: THIAMINE HCL 100 MG TABLET (FP) PO SCH (21:59)
[2018-09-27] MEDS: NICOTINE 14 MG/24 HOURS TOPICAL PATCH TD SCH (09:47)
[2018-09-27] MEDS: HYDROCHLOROTHIAZIDE 25 MG TABLET (FP) PO SCH (09:47)
[2018-09-27] MEDS: PRENATAL VITAMINS W/ FOLIC ACID TABLET (FP) PO SCH (09:47)
[2018-09-27] MEDS: amLODIPine BESYLATE 10 MG TABLET (FP) PO SCH (09:47)
[2018-09-27] MEDS: THIAMINE HCL 100 MG TABLET (FP) PO SCH (21:51)
[2018-09-28] MEDS: NICOTINE 14 MG/24 HOURS TOPICAL PATCH TD SCH (10:36)
[2018-09-28] MEDS: PRENATAL VITAMINS W/ FOLIC ACID TABLET (FP) PO SCH (10:36)
[2018-09-28] MEDS: HYDROCHLOROTHIAZIDE 25 MG TABLET (FP) PO SCH (10:36)
[2018-09-28] MEDS: amLODIPine BESYLATE 10 MG TABLET (FP) PO SCH (10:36)
[2018-09-28] MEDS: THIAMINE HCL 100 MG TABLET (FP) PO SCH (22:22)
[2018-09-29] MEDS: HYDROCHLOROTHIAZIDE 25 MG TABLET (FP) PO SCH (09:38)
[2018-09-29] MEDS: amLODIPine BESYLATE 10 MG TABLET (FP) PO SCH (09:38)
[2018-09-29] MEDS: NICOTINE 14 MG/24 HOURS TOPICAL PATCH TD SCH (09:38)
[2018-09-29] MEDS: PRENATAL VITAMINS W/ FOLIC ACID TABLET (FP) PO SCH (09:38)
[2018-09-29] MEDS: THIAMINE HCL 100 MG TABLET (FP) PO SCH (21:16)
[2018-09-30] MEDS: amLODIPine BESYLATE 10 MG TABLET (FP) PO SCH (09:45)
[2018-09-30] MEDS: PRENATAL VITAMINS W/ FOLIC ACID TABLET (FP) PO SCH (09:45)
[2018-09-30] MEDS: NICOTINE 14 MG/24 HOURS TOPICAL PATCH TD SCH (09:45)
[2018-09-30] MEDS: HYDROCHLOROTHIAZIDE 25 MG TABLET (FP) PO SCH (09:45)
[2018-09-30] MEDS: THIAMINE HCL 100 MG TABLET (FP) PO SCH (22:07)
[2018-10-01] MEDS: HYDROCHLOROTHIAZIDE 25 MG TABLET (FP) PO SCH (09:35)
[2018-10-01] MEDS: NICOTINE 14 MG/24 HOURS TOPICAL PATCH TD SCH (09:36)
[2018-10-01] MEDS: amLODIPine BESYLATE 10 MG TABLET (FP) PO SCH (09:36)
[2018-10-01] MEDS: PRENATAL VITAMINS W/ FOLIC ACID TABLET (FP) PO SCH (09:36)
[2018-10-01] MEDS: THIAMINE HCL 100 MG TABLET (FP) PO SCH (23:04)
[2018-10-02] MEDS: amLODIPine BESYLATE 10 MG TABLET (FP) PO SCH (09:52)
[2018-10-02] MEDS: HYDROCHLOROTHIAZIDE 25 MG TABLET (FP) PO SCH (09:52)
[2018-10-02] MEDS: PRENATAL VITAMINS W/ FOLIC ACID TABLET (FP) PO SCH (09:52)
[2018-10-02] MEDS: NICOTINE 14 MG/24 HOURS TOPICAL PATCH TD SCH (09:52)
[2018-10-02] MEDS: THIAMINE HCL 100 MG TABLET (FP) PO SCH (21:23)
[2018-10-03] MEDS: NICOTINE 14 MG/24 HOURS TOPICAL PATCH TD SCH (09:59)
[2018-10-03] MEDS: amLODIPine BESYLATE 10 MG TABLET (FP) PO SCH (09:59)
[2018-10-03] MEDS: PRENATAL VITAMINS W/ FOLIC ACID TABLET (FP) PO SCH (09:59)
[2018-10-03] MEDS: HYDROCHLOROTHIAZIDE 25 MG TABLET (FP) PO SCH (09:59)
[2018-10-03] MEDS: THIAMINE HCL 100 MG TABLET (FP) PO SCH (22:05)
[2018-10-04] MEDS: amLODIPine BESYLATE 10 MG TABLET (FP) PO SCH (09:41)
[2018-10-04] MEDS: NICOTINE 14 MG/24 HOURS TOPICAL PATCH TD SCH (09:41)
[2018-10-04] MEDS: HYDROCHLOROTHIAZIDE 25 MG TABLET (FP) PO SCH (09:41)
[2018-10-04] MEDS: PRENATAL VITAMINS W/ FOLIC ACID TABLET (FP) PO SCH (09:42)
[2018-10-04] MEDS: THIAMINE HCL 100 MG TABLET (FP) PO SCH (22:52)
[2018-10-05 07:04] VITALS: TEMP 98.3
--- NOTE | 2018-10-05 08:48 | DS ---
[facility] Rehab Discharge Summary - [facility] Rehab Discharge Summary Admission Date: 09/21/18 Discharge Date: 10/05/18 - History Present History: Alcohol dependence, Cocaine dependence - Discharge Physical Exam Vital Signs: Vital Signs Temperature 98.3 F 10/05/18 07:03 Pulse Rate 62 10/05/18 07:03 Respiratory Rate 18 10/05/18 07:03 Blood Pressure 133/73 10/05/18 07:03 O2 Sat by Pulse Oximetry (%) Pertinent Admission Physical Exam Findings: - Physical General Appearance: No Apparent Distress, Appropriately Dressed HEENTM: EOMI,JUNIOR Respiratory: Lungs Clear Neck: supple Cardiology:Regular Rhythm & Rate Abdominal: +BS, obese Musculoskeletal: Full weight bearing, steady gait, full ROM Neurological: Cn 2-12 intact, no neurological deficits Integumentary: Warm, dry good turgor - Treatment Discharge Condition: Outpatient referral accepted Hospital Course: Followed treatment plan, adherent to medications. - Medication Discharge Medications: Ambulatory Orders Amlodipine Besylate 10 mg PO DAILY #14 tablet 10/05/18 Hydrochlorothiazide 25 mg PO DAILY #14 tablet 10/05/18 - Medication-Assisted Treatment (MAT) Medication-Assisted Treatment (MAT): No - Discharge Instructions Diet, activity, other medical instructions: Diet: Regular diet as tolerated Activity: Activity as tolerated Other medical instructions: Follow up with aftercare plan and make an appointment with PCP within 2 weeks of discharge. - Diagnosis (1) Alcohol dependence with uncomplicated withdrawal Current Visit: No Status: Chronic (2) Cocaine dependence Current Visit: No Status: Chronic Qualifiers: Substance use status: uncomplicated Qualified Code(s): F14.20 - Cocaine dependence, uncomplicated (3) HTN (hypertension) Current Visit: No Status: Chronic Qualifiers: Hypertension type: essential hypertension Qualified Code(s): I10 - Essential (primary) hypertension (4) Obesity (BMI 30.0-34.9) Current Visit: No Status: Chronic (5) Osteoarthritis of knee Current Visit: No Status: Chronic Qualifiers: Osteoarthritis type: primary Laterality: bilateral Qualified Code(s): M17.0 - Bilateral primary osteoarthritis of knee - Follow-up Referral Minutes to complete discharge: 20
[2018-10-05 10:15] VITALS: BP 122/81; PULSE 67
== END 2018-10-05 09:25 | disposition home or self-care (01) | DRG 772 ==
LOC: YASAS 15:15 → Y3W 21:35
PROVIDERS: ADMIT Neuromusculoskeletal Medicine & OMM; ATTEND Neuromusculoskeletal Medicine & OMM
PROC: HZ42ZZZ Group Counseling for Substance Abuse Treatment, Cognitive-Behavioral (ICD-10-PCS; principal; 2018-09-21)
DX: F10.20 Alcohol dependence, uncomplicated (principal); F14.20 Cocaine dependence, uncomplicated; F17.213 Nicotine dependence, cigarettes, with withdrawal; I10 Essential (primary) hypertension; M17.0 Bilateral primary osteoarthritis of knee; E66.9 Obesity, unspecified; Z68.30 Body mass index [BMI] 30.0-30.9, adult
CPT/HCPCS: 36415; 80053; 81003; 85027; 86593; 93005; 93010